=== PATIENT | male | born 1960 | race Caucasian/White ===

== ENCOUNTER 2024-02-23 18:07 | Inpatient (IN) | payer OTHER, SELFPAY ==
[2024-02-23] VITALS (27 sets, daily range): BP systolic 84–192; BP diastolic 52–105; BMI 27.4
[2024-02-23] MEDS: ATIVAN 2 MG IV ×2 (13:28→13:33)
[2024-02-23] MEDS: KEPPRA 1500 MG IV (13:34)
[2024-02-23 13:43] LABS: % Basophils 0.6 % (0-2); % Eosinophils 1.4 % (0-6); % Immature Granulocytes 0.6 % (0-0.5); % Lymphocytes 14.4 % (20.5-51.1); % Monocytes 6.7 % (1.7-9.3); % Neutrophils 76.3 % (42.2-75.2); Absolute Basophils 0.1 10^3/uL (0-0.2); Absolute Eosinophils 0.2 10^3/uL (0-0.7); Absolute Immature Granulocytes 0.1 10^3/uL (0-0.05); Absolute Lymphocytes 1.6 10^3/uL (1.2-3.4); Absolute Monocytes 0.8 10^3/uL (0.1-0.6); Absolute Neutrophils 8.7 10^3/uL (1.4-6.5); Hematocrit 40.5 % (39.0-52.0); Hemoglobin 13.9 g/dL (13.0-18.0); Mean Corp Hgb Conc. 34.3 g/dL (33.0-37.0); Mean Corpuscular Hgb 31.8 pg (27.0-31.0); Mean Corpuscular Volume 92.7 fL (80.0-94.0); Mean Platelet Volume 8.7 fL (7.4-10.4); Nucleated Red Blood Cells % 0 % (-); Platelet Count 351 10^3/uL (130-400); Red Blood Cell Count 4.37 10^6/uL (4.70-6.10); Red Cell Dist. Width 13.5 % (11.5-14.5); White Blood Cell Count 11.4 10^3/uL (4.8-10.8)
--- NOTE | 2024-02-23 13:45 | EDRN ---
[id number]- by Dr. Bernal
25mg etom @ 1346
50mg yoanna @ 1347
et tube 8.0
23 @ lip
[2024-02-23] MEDS: DIPRIVAN 100 IV ×2 (13:50→17:15)
[2024-02-23 13:51] LABS: ALT (SGPT) 24 U/L (0-50); AST (SGOT) 39 U/L (17-59); Albumin 4.5 g/dl (3.5-5.0); Alkaline Phosphatase 77 U/L (38-126); Blood Urea Nitrogen 10 mg/dl (9-20); Calcium 9.3 mg/dl (8.4-10.2); Carbon Dioxide 19 mmol/L (22-30); Chloride 106 mmol/L (98-107); Glucose 134 mg/dl (70-99); Sodium 138 mmol/L (135-145); Total Bilirubin 0.8 mg/dl (0.2-1.3); Total Protein 6.5 g/dl (6.3-8.2); eGFR > 60.00
--- NOTE | 2024-02-23 14:02 | ED.GENMED ---
History of Present Illness
General
Chief Complaint: Change in Mental Status
Source: patient
Time Seen by Provider: 02/23/24 13:28
History of Present Illness
History of Present Illness:
63-year-old female brought to the emergency room by paramedics in an agitated state. Patient evidently had a seizure at home. He was confused and has remained confused. Paramedics were called and had difficulty packaging the patient for
transport. They gave 5 mg of Versed IM. He was placed in restraints on the ambulance stretcher. On arrival here the patient is unable to provide any history. He repetitively yells out take his hands from his arms. Unclear if patient has been
taking his antiepileptics. Prehospital Accu-Chek was normal
Past History
Past History
ED Past Medical History: Seizures
ED Past Surgical History: None
Social History
Tobacco: Non-smoker
Alcohol: Former
Drug: Marijuana
Personal:
Living: with family
Employment: Other
Family History
Family History: Unable to obtain
Phy Exam
Physical Exam
Physical Exam:
General: Awake, agitated, confused
Vitals: Tachycardic
Head: Atraumatic
Eyes: Pupils equal, EOMI, no nystagmus observed
Throat: Airway intact, no exudates
Neck: Trachea midline
Lungs: Clear and equal b/l
Heart: Regular rate, no murmurs
Abd: Soft, Nontender, No pulsatile mass
Neuro: Moves all 4 extremities vigorously
Skin: Warm, dry, no rash
Extremities: pulses equal b/l, no edema
Course
Orders/Labs/Results
Orders:
Orders
02/23/24 13:19
Etomidate [Amidate] 40 mg .ROUTE .STK-MED ONE
Rocuronium Lakin [Rocuronium] 50 mg .ROUTE .STK-MED ONE
02/23/24 13:26
Lorazepam [Ativan] 2 mg .ROUTE .STK-MED ONE
02/23/24 13:28
Lorazepam [Ativan] 2 mg IV NOW STA
02/23/24 13:30
CBC/With Diff [Complete Blood Count/With Diff] Urgent
CMP [Comprehensive Metabolic Panel] Urgent
02/23/24 13:31
Lorazepam [Ativan] 2 mg .ROUTE .STK-MED ONE
02/23/24 13:32
Levetiracetam Injectable [Keppra] 1,500 mg .ROUTE .STK-MED ONE
Lorazepam [Ativan] 2 mg IV NOW STA
02/23/24 13:34
Levetiracetam Injectable [Keppra] 1,500 mg IV NOW STA
02/23/24 13:40
Propofol 1,000,000 Mcg/100 ml [Diprivan] 1,000,000 mcg in 100 ml .ROUTE .STK-MED
02/23/24 13:50
Portable Chest Xray [CR Chest Portable - 1 View] Stat
Comment:
Reason For Exam: intubation
Reason Study Needs to be Portable: Patient Unstable
02/23/24 13:54
CT Head W/o Iv Contrast Urgent
Comment:
Reason For Exam: altered mental status
02/23/24 14:35
FentaNYL 1,000 MCG/100 ML [Sublimaze] 1,000 mcg in 100 ml IV NOW
Indication:: Deep Sedation
Begin Infusion:: Now
Goal:: RASS </= -3, BIS 40-60, ventilator synchrony
Maximum dose in mcg/hr:: 300
Continue currently infusing dose and titrate:: Yes
Titration Instructions:: Titrate Q30 min until ventilator synchrony, RASS or BIS goal is met.
Titration Instructions:: If RASS >/= -2 or BIS > 60 or ventilator dyssynchrony:
Titration Instructions:: administer bolus dose and increase infusion by 25 mcg/hr.
Titration Instructions:: Administer analgesia bolus dose(s) & titrate analgesia prior to
Titration Instructions:: adjusting sedation.
Over-sedation Instructions:: if BIS < 40 and pt is synchronous with ventilator, decrease infusion by
Over-sedation Instructions:: 25 mcg/hr every 2 hours until BIS = 40-60.
Over-sedation Instructions:: Do not wean infusion to off if patient is receiving a continuous NMBA or
Over-sedation Instructions:: has received a bolus dose of NMBA within the past 3 hours.
Notify provider:: immediately if pt exhibits signs/symptoms of chest wall rigidity,
Notify provider:: hemodynamic instability, or agitation/pain despite maximum dosing.
Additional Instructions:: Patient MUST be mechanically ventilated.
Fentanyl Citrate/Pf [Sublimaze] 100 mcg IV NOW STA
Fentanyl Citrate/Pf [Sublimaze] 50 mcg IV [id number] PRN
02/23/24 14:37
FentaNYL 1,000 MCG/100 ML [Sublimaze] 1,000 mcg in 100 ml .ROUTE .STK-MED
02/23/24 14:47
Electrocardiogram (*1) Urgent
Reason for Study: Abnormal EKG
EKG- Treatment ONCE
02/23/24 14:49
Urinalysis Reflex To Culture Urgent
Date Specimen was Collected: 02/23/24
Time Specimen was Collected: 14:47
Urine Drug Abuse Screen Urgent
Date Specimen was Collected: 02/23/24
Time Specimen was Collected: 14:47
Urine Microscopic Reflex Cult Urgent
02/23/24 Dinner
NPO
Allow oral meds: Yes
Allow clear liquids: No
02/23/24 15:08
ABG [Arterial Blood Gas] Urgent
%Oxygen/Room Air: 60
02/23/24 15:24
Propofol 1,000,000 Mcg/100 ml [Diprivan] 1,000,000 mcg in 100 ml IV NOW
Indication:: Light Sedation
Begin Infusion:: Now
Goal:: RASS 0 to -2
Maximum dose in mcg/kg/min:: 50
Initial dose based on RASS:: Yes
If RASS is:: +1 or pt hemodynamically unstable (SBP < 90mmHg), initiate at 10 mcg/kg/min
If RASS is:: +2, initiate at 20 mcg/kg/min
If RASS is:: greater than or equal to +3, initiate at 30 mcg/kg/min
Titration Instructions:: Titrate by 5-10 mcg/kg/min every 5 minutes until RASS 0 to -2 achieved.
Taper Instructions:: If RASS is at or below goal for 4 consecutive hours decrease infusion by
Taper Instructions:: 5-10 mcg/kg/min every 2 hours to off.
Over-sedation Instructions:: If CPOT 0-2 (at goal) AND RASS -3 to -5 (below goal) decrease sedative by
Over-sedation Instructions:: 50% first. If pain score remains at goal and RASS remains below goal in
Over-sedation Instructions:: 1 hour, decrease opioid infusion by 50%.
Notify provider:: immediately if patient exhibits signs/symptoms of propofol-related
Notify provider:: infusion syndrome.
Additional Instructions:: Patient MUST be mechanically ventilated and MUST receive analgesia.
02/23/24 15:36
0.9% Sodium Chloride 500 ml [Nss] 500 ml IV BOLUS
02/23/24 15:44
Triglycerides Routine
Comment: baseline levels with propofol infusion
02/23/24 15:45
0.9% Sodium Chloride 1000 ml [Nss] 1,000 ml IV 200 mls/hr
02/23/24 16:43
Ventilator Initial Settings [RESP] Routine
Tidal Volume: 500
Rate: 14
FIO2: 40
PEEP: 5
02/23/24 17:15
Propofol 1,000,000 Mcg/100 ml [Diprivan] 1,000,000 mcg in 100 ml IV PER PROTOCOL
Indication:: Deep Sedation
Begin Infusion:: Now
Goal:: RASS -3 to -5 or BIS < 60 or ventilator synchrony
Maximum dose in mcg/kg/min:: 50
Continue currently infusion dose and titrate:: Yes
Titration Instructions:: Titrate by 5-10 mcg/kg/min every 5 minutes until RASS -3 to -5 or
Titration Instructions:: BIS < 60 or ventilator synchrony is met.
Titration Instructions:: Administer analgesia bolus dose(s) & titrate analgesia prior to
Titration Instructions:: adjusting sedation.
Taper Instructions:: If RASS is at or below goal for 4 consecutive hours decrease infusion by
Taper Instructions:: 5-10 mcg/kg/min every 2 hours. Do not wean infusion to off if patient is
Taper Instructions:: receiving a continuous NMBA or has received bolus NMBA with the past 3 hrs
Over-sedation Instructions:: If BIS < 40 and synchronous with ventilator decrease infusion by
Over-sedation Instructions:: 5-10 mcg/kg/min every 2 hour until BIS = 40-60.
Notify provider:: immediately if patient exhibits signs/symptoms of propofol-related
Notify provider:: infusion syndrome.
Additional Instructions:: Patient MUST be mechanically ventilated and MUST receive analgesia.
02/23/24 17:53
Admit/Transfer Patient As Directed
Co-Sign Provider:
Level of Care: Inpatient admission
Assign to:: ICU
Physician / Group: jerod
Diagnosis: seizure
Reason for Hospitalization: seizure
Expected length of stay greater than two midnights?: Yes
ELOS- Estimated Length of Stay in days: 2
I certify the patient meets the requirements for IP care: Yes
Code Status As Directed
Resuscitation Status: Full Code
PRN Pain Medication Management As Directed
May give lesser potent ordered pain med per pt: Yes
preference::
Protocol:: Medication orders for pain may be administered in a
manner that supports deferring to patient preference
when the pt is:
- Requesting an ordered lesser potent pain medication.
Least to most potent pain medications are defined
as: acetaminophen < NSAID < tramadol < opioids
(morphine, oxycodone, hydromorphone).
- Requesting a lesser dose of the same medication IF
ORDERED.
- Requesting a less intrusive route of administration
if both routes are prescribed by the provider (PO <
IV).
02/23/24 19:45
Activity As Directed
Activity Level: As Tolerated
Vital Signs As Directed
Frequency: Per unit guidelines
DX Deep Vein Thrombosis Video Routine
02/23/24 20:00
Heparin 5,000 units SC Q12
Levetiracetam Injectable [Keppra] 500 mg IV Q12
02/24/24 08:00
Pantoprazole [Protonix IV] 40 mg IV DAILY
Polyethylene Glycol Powder [Miralax] 17 grams TUBE DAILY
Abnormal Lab Results
02/23/24 02/23/24 02/23/24
13:30 14:49 15:08
WBC 11.4 H 10^3/uL
(4.8-10.8)
RBC 4.37 L 10^6/uL
(4.70-6.10)
MCH 31.8 H pg
(27.0-31.0)
Abs Immat Gran (auto) 0.1 H 10^3/uL
(0-0.05)
Absolute Neuts (auto) 8.7 H 10^3/uL
(1.4-6.5)
Absolute Monos (auto) 0.8 H 10^3/uL
(0.1-0.6)
Immature Gran % 0.6 H %
(0-0.5)
Neutrophils % 76.3 H %
(42.2-75.2)
Lymphocytes % 14.4 L %
(20.5-51.1)
pO2 181 H mmHg
(83-108)
ABG O2 Sat (Measured) 99.4 H %
(94-98)
Carbon Dioxide 19 L mmol/L
(22-30)
Glucose 134 H mg/dl
(70-99)
Urine Ketones Trace A
(Negative)
Ur Occult Blood Reflex 1+ A
(Negative)
Urine Bacteria (Reflex) Few A
(Negative)
U Marijuana (THC) Screen Positive H
(Negative)
02/23/24 13:30
02/23/24 13:30
Vital Signs
Initial and Last Documented VS:
Initial Vital Signs
Pulse Resp BP Pulse Ox
132 20 163/64 100
02/23/24 13:20 02/23/24 13:20 02/23/24 13:20 02/23/24 13:20
Last Documented Vital Signs
Temp Pulse Resp BP Pulse Ox
98.1 F 52 14 123/75 98
02/23/24 14:00 02/23/24 21:15 02/23/24 21:15 02/23/24 20:45 02/23/24 21:15
Procedures
Intubations
Procedure completed by: myself
Method of Intubation: glidescope
Tube size (cm): 8.0
Placement confirmed by: auscutation, CXR, capnography and direct visualization
Breath sounds after intubation: equal
Intubation complications: no complications
MDM/Problems Addressed
Differential Diagnosis Includes:
status epilepticus, seizure with prolonged post-ictal phase, ingestion
MDM/Problems Addressed:
Patient presents to the emergency room after having a seizure at home. Patient did not return to normal and remained confused and agitated. Patient received 2 doses of 5 mg each Versed in the ambulance. Patient received 2 doses of 2 mg lorazepam
here in the emergency room. These did not affect the patient's agitated behavior or tachycardia. Spent least 30 minutes at the bedside with the patient upon his helping to control his agitated behavior and titrating medication, observing for
improvement or deterioration in mental status and respiratory status. Ultimately, given concern for status epilepticus with nonconvulsive seizures or intracranial process we decided to proceed to intubation to facilitate antiepileptic medications
including. Prior to the patient patient also received 1500 mg of Keppra. Patient was intubated without difficulty. Heart rate was noted to improve after the initiation of propofol. Neurology consultation was obtained. Dr. Humphrey came and
evaluated the patient. He states that there is no ability to do an EEG at this time. Therefore patient will require transfer to an institution with that capability. Patient was accepted at [facility]. ABG postintubation shows good ventilation.
PaO2 was elevated and the FiO2 was titrated down to 40%. CT of the head showed no acute abnormality. Chest x-ray shows adequate positioning of the endotracheal tube. There was a prolonged period of time prior to patient transfer which required
repeat bedside evaluations and monitoring in the ventilator. Consultation was also obtained from the dean of students.
Chronic conditions affecting care: Other (Seizure disorder)
Acute Exacerbation and/or Progression of Chronic Illness: Other (Seizure disorder)
*Radiology
Radiology exam reviewed: preliminary read by ED provider (No acute lung issue, endotracheal tube in good position) and radiology read reviewed
*Pulse Oximetry
Patient hypoxic: no
*EKG
Heart Rate: 93
Rate: normal
Rhythm: sinus
[place]: normal axis
Interval: normal interval
QRS Pattern: normal QRS
Ischemia: no ischemia
*Leather Piece Inspector Interpretation
Rate: normal
Interpretation: normal
Rhythm: sinus
*Critical Care Note
Total Time (30-74mins, 75-104mins- exclusive of procedures): 75 min
comment:
Critical care statement: A total of 75 minutes of critical care time was provided for this patient. This includes management of unstable vital signs, evaluation of the patient at bedside, reviewing the patient's pertinent medical records, discussion
with consultants, review of old EKGs and review of pertinent medical records. This time with separate from time utilized to perform the aforementioned documented procedures
Patient Management
Social determinants of health affecting care: Poor outpatient follow-up
Discussion with other providers: Java Project Manager (Dr Humphrey)
ED Attending Note
-
Portions of this chart may have been created with voice recognition software.� Occasional wrong word or��sound alike� substitutions may have occurred due to the inherent limitations of voice recognition software.
Discharge Plan
Departure
Patient Disposition: Acute Care Hospital
Date of Disposition: 02/23/24
Time of Disposition: 14:55
Condition: Serious
Discharge Problem:
Status epilepticus, Respiratory failure
Hospital Transfer
Other hospital: [facility]
I certify that the patient requires transfer: Yes
Discussed case with accepting physician: Dr. Knapp
Reason for transfer: availability of service
Interventions
Interventions:
*Risk Screen - Suicide Last Done: 02/23/24 13:20
*General Assessment Last Done: 02/23/24 13:20
*Neglect/Abuse Screening Last Done: 02/23/24 13:20
*ED COVID-19 Vaccine History Last Done: 02/23/24 20:00
*Nursing Disposition Last Done: 02/23/24 19:56
ED- Neurological Assessment Last Done: 02/23/24 14:00
ED Swallowing Screen Last Done: 02/23/24 15:00
Discharge Date and Time
Discharge Date/Time: 02/23/24 19:57
[2024-02-23] MEDS: SUBLIMAZE 100 IV ×2 (14:40→20:18)
[2024-02-23] MEDS: SUBLIMAZE 100 MCG IV (14:43)
[2024-02-23 14:55] LABS: Urine Albumin Trace (Neg - Trace); Urine Bilirubin Negative (Negative); Urine Character Clear (Clear); Urine Color Yellow; Urine Glucose Negative (Negative); Urine Ketone Trace (Negative); Urine Leukocyte Negative (Negative); Urine Nitrite Negative (Negative); Urine Occult Blood 1+ (Negative); Urine Urobilinogen Negative (Neg - 1+)
[2024-02-23 15:09] LABS: Amphetamines Negative (Negative); Barbiturates Negative (Negative); Benzodiazepines Negative (Negative); Buprenorphine Negative (Negative); Cocaine Negative (Negative); Marijuana Positive (Negative); Methadone Negative (Negative); Methamphetamines Negative (Negative); Opiates Negative (Negative); Phencyclidine Negative (Negative); Tricyclic Antidepressants Negative (Negative)
[2024-02-23 15:13] LABS: Urine Bacteria Few (Negative); Urine Red Blood Cell 0-2 /HPF (0-2); Urine Squamous Cell 0-2 /LPF (Few); Urine White Cell 0-2 /HPF (0-5)
[2024-02-23 15:21] LABS: B.E. -1.8 mmol/L; HCO3 23.7 mmol/L (21-28); O2 Saturation % 99.4 % (94-98); PCO2 42 mmHg (35-48); PO2 181 mmHg (83-108); pH 7.36 (7.35-7.45)
--- NOTE | 2024-02-23 15:31 | CON.INTV ---
Consultation
Consultation Request
Date/Time Consultation Requested: 02/23/2024
Date/Time Consultation Performed: 02/23/2024 - 1530
Requesting Provider: Dr. Bernal
Performing Provider: Dr. Bautista
Reason for Consultation: Intubated/Seizures
Medical History
-
Chief Complaint: Seizure
History of Present Illness:
63-year-old male with a past medical history of epilepsy and essential tremor who presents after having witnessed seizure at home. 911 called and patient was confused for at least 50 minutes following his initial seizure. He was also combative and
inconsolable and had to be given 10 mg total Versed IM and restraints by EMS. Patient follows with neurology with last office visit on 09/28/[address] Neil. Patient is normally on extended release Keppra 750 mg once a day and was told to
contact [place] [facility] to facilitate a movement disorders evaluation for his history of essential tremor. He has a long history of AED noncompliance and repetitive seizures. His first seizure was in August 2020. He started taking Keppra after
he had a seizure in October 2022. Last seizure was in November 2022. In the ER, patient was tachycardic to 132, breathing at 20 breaths/min, BP 163/64 and saturating 100% on room air. Initial labs showed mild leukocytosis to 11.4, serum bicarbonate
level 19, glucose 134, urinalysis with trace urine ketones, UDS positive for marijuana. Due to continued altered mental status in the ER, he was intubated for airway protection. CXR showed no active pulmonary process and CT head showed no acute
intracranial abnormality. Neurology consulted -patient given NS 0.9% X5 100 cc, 2 mg Ativan, 1.5 g Keppra, and started on propofol + fentanyl drip. Unfortunately EEG interpretation capabilities are currently not available, and patient is being
arranged for transfer to [facility] for further care. Critical care services consulted for additional management/recommendations while patient is awaiting transfer.
When I saw the patient, he was intubated on AC at 500/14/40%/5, with PIP 21 cm water, breathing at 14 breaths/min and VTe 456 mL. SpO2 95%, BP 97/70 heart rate 79. He is on NS at 200 cc/hr, propofol gtt at 40mcg/kg/min and fentanyl gtt at
200mcg/hr. Patient's , Dominique, at bedside. I answered all of her questions. She says that the patient seized this afternoon and she is not sure if he has been compliant with his Keppra. This morning the patient just did not look right and
his color was off, so she made him take a Keppra pill but he still sees regardless. She says that before today he was in his usual state of health, although he was stung by several wasps the last 2 weekends. 2 weeks ago he was weed whacking and
revealed a wasps nest, and last weekend was moving some branches as they live out in the [place], and again was attacked by a bunch of wasps. He has been taking Benadryl over the last few weeks, she believes his last dose was this past Tuesday.
Otherwise she denies any recent travel for the patient, recent sick contacts, he has not been having any cough, chest pain, headache, fevers or chill.
PMHx: Epilepsy with history of status epilepticus due to medication noncompliance, essential tremor
PSHx: Excision of large soft tissue tumor at [place] (October 2013), tonsillectomy (2013)
Past Medical History
Past Medical History: Other (Above as per HPI)
Past Surgical History: Other (Above as per HPI)
Social History
Tobacco: Non-smoker
Alcohol: None
Drug: Marijuana
Personal:
Living: With Family
Family History
Family History: Cancer (Mother: Colon cancer) and Other (Brother: History of absence seizures)
Allergies / Home Medications
Allergies
Allergy/AdvReac Type Severity Reaction Status Date / Time
No Known Allergies Allergy Verified 02/23/24 13:31
Home Medications
�Medication �Instructions �Recorded �Confirmed �Last Taken �Type
levetiracetam 500 mg tablet 500 mg PO BID 30 days #60 tabs 04/15/21 09/22/21 Unknown Rx
levetiracetam 500 mg tablet 500 mg PO BID #60 tabs 09/22/21 Unknown Rx
levetiracetam 1,000 mg tablet 1,000 mg PO BID 2 months #120 tabs 10/23/22 Unknown Rx
(Keppra)
Review of Systems
-
Unable to Obtain full review of systems at this time due to: Patient Intubation
Vitals / Labs / Diagnostic Testing
Vital Signs
Pulse Resp BP Pulse Ox
99 17 178/74 96
02/23/24 14:45 02/23/24 14:45 02/23/24 14:45 02/23/24 14:45
Lab Data
02/23/24 13:30
02/23/24 13:30
Laboratory Results
02/23/24
15:08
pH 7.36
pCO2 42
pO2 181 H
HCO3 23.7
O2 Delivery Level
Diagnostic Testing:
Physical Exam
-
HEENT: Normocephalic, Anicteric and Other (ETT in place)
Cardiovascular: S1/S2 and Peripheral Edema (negative)
Respiratory: Wheeze (negative), Rales (negative), Rhonchi (negative), Non-Labored Respirations and Other (Mechanical breath sounds heard bilaterally)
GI: Soft, Non Distended, Non Tender and Normal Bowel Sounds
Neurology: Tremors (negative) and Other (Pupils 2 mm and sluggish bilaterally; +gag reflex)
Skin: Warm and Dry
General: Respiratory Distress (negative), Chills (negative) and Sweats (negative)
Assessment
-
Assessment: 63-year-old male with a past medical history of epilepsy and essential tremor who presents after having witnessed seizure at home. 911 called and patient was confused for at least 50 minutes following his initial seizure. He was also
combative and inconsolable and had to be given 10 mg total Versed IM and restraints by EMS. Patient follows with neurology with last office visit on 09/28/[address] Neil. Patient is normally on extended release Keppra 750 mg once a day and
was told to contact [place] [facility] to facilitate a movement disorders evaluation for his history of essential tremor. He has a long history of AED noncompliance and repetitive seizures. His first seizure was in August 2020. He started taking
Keppra after he had a seizure in October 2022. Last seizure was in November 2022. In the ER, patient was tachycardic to 132, breathing at 20 breaths/min, BP 163/64 and saturating 100% on room air. Initial labs showed mild leukocytosis to 11.4, serum
bicarbonate level 19, glucose 134, urinalysis with trace urine ketones, UDS positive for marijuana. Due to continued altered mental status in the ER, he was intubated for airway protection. CXR showed no active pulmonary process and CT head showed
no acute intracranial abnormality. Neurology consulted - patient given NS 0.9% x 500 cc bolus, 2 mg Ativan, 1.5g Keppra, and started on propofol + fentanyl drip. Unfortunately EEG interpretation capabilities are currently not available, and
patient is being arranged for transfer to [facility] for further care. Critical care services consulted for additional management/recommendations while patient is awaiting transfer.
Chronic conditions LOAD TEST MECHANIC: Epilepsy with history of status epilepticus due to medication noncompliance, essential tremor
Impression:
#Breakthrough seizure in a patient with epilepsy c/b status epilepticus
#Acute respiratory failure with hypoxia now on mechanical ventilation
#Leukocytosis
#Metabolic acidosis with normal anion gap
Plan:
- Continue with mechanical ventilation with daily SAT/SBT if clinically appropriate
- Continue with AEDs as per neurology
- Maintain RASS 0 to -2 with propofol gtt and can likely stop fentanyl gtt and use prn fentanyl pushes
- Awaiting TRX to [facility] for continuous bedside EEG and continued management
- Keep HOB >30-45 degrees to minimize risk of aspiration
- Maintain SpO2 >90-94%
- Maintain MAP>65
- Trend WBC, hold off on ABx as this is likely reactive; plus CXR appears clear without pneumonia, and he is afebrile
- Replete electrolytes with K>4, Mg>2
- Maintain euglycemia with goal BG 140-180
- prn nebulized bronchodilators - not currently bronchospastic
- Start PPI for stress ulcer ppx given critical neurocognitive status
- DVT ppx
[facility] will continue to follow along while patient remains hospitalized here while awaiting transfer to [facility].
Critical care statement: A total of 40 minutes of critical care time was provided for this patient today. This includes management of unstable vital signs, evaluation of the patient at bedside, reviewing the patient's pertinent medical records
including radiographs, microbiology, laboratory evaluations, and discussion with primary team, consultants, pharmacy, nutrition, physical therapy, case management, charge nurse, critical care nursing, and respiratory therapy.
Data:
CXR 02/23/2024: No active pulmonary process
CT head 02/23/2024: No focal or acute intracranial abnormalities. Mild diffuse cortical and cerebellar atrophy.
[2024-02-23] MEDS: NSS IV (15:42)
[2024-02-23] MEDS: NSS 500 IV (15:42)
[2024-02-23] MEDS: NSS 1000 IV ×2 (15:48→20:26)
[2024-02-23 16:14] LABS: Triglycerides 87 mg/dl (10-149)
--- NOTE | 2024-02-23 17:56 | HPS.HSE ---
Addendum entered and electronically signed by Cecily Marinelli MD 02/23/24 18:07:
Continued Keppra 500 BID.
Original Note:
Family Physician
-
Family Physician: NO INTERVIEW UNKNOWN
Chief Complaint
-
seizure
History of Present Illness
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 911 was called and patient
was confused for at least 15 minutes after initial seizure. He was combative and given 10 mg IM Versed and restraints by EMS. Patient follows with neurology last office visit was on 09/[address] Neil. Patient is normally on extended release
Keppra 750 mg once a day and told to contact neurology to arrange for movement disorders evaluation for essential tremor.
His first seizure was in 2020 and started Keppra after seizure in 2022. His last seizure was in November 2022.
Patient was tachycardic and due to continued altered mental status he was intubated for airway protection. Neurology was consulted and patient was given IV fluids, 2 mg Ativan, 1.5 g of Keppra start on propofol and fentanyl drip. Due to
unavailability of EEG interpretation patient is being transferred to [facility].
Patient's states that she is not sure if patient has been compliant with his Keppra. This morning he did not look right and his color was off and he was having visual hallucinations which is not a usual aura symptom when he had seizure. She
made him take Keppra however he still had a seizure. He noticed that one of his arms were shaking and he had irregular breathing, foaming at the mouth without tongue biting. Seizure lasted around 15 minutes which is typical for his usual seizure
length.
His last seizure was 6 months ago.
He had been swarmed by wasps over the past few weekends has been taking a lot of Benadryl.
He denies any recent travel, sick contacts. No chest pain, cough, headache, fevers or chills vomiting or diarrhea.
Patient does not drink alcohol or smoke. He uses marijuana.
Medical History
Past Medical History
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
Past Surgical History: Reports Other (sarcoma resection thigh )
Social History
Tobacco: Non-smoker
Drug: Marijuana
Family History
Family History: Other (brother with seizure )
Allergies / Home Medications
Allergies reflects when Allergies were last updated in [facility].
Home Medications with original date entered in [facility]
Allergy/Medication List:
Allergies
Allergy/AdvReac Type Severity Reaction Status Date / Time
No Known Allergies Allergy Verified 02/23/24 13:31
Home Medications
levetiracetam 750 mg tablet,extended release 24 hr 750 mg PO DAILY 02/23/24
Review of Systems
-
History Source: Family
A 12 point ROS was completed and negative except as noted: Yes
Constitutional: Reports No Symptoms
EENT: Reports No Symptoms
Respiratory: Reports No Symptoms
Cardiac: Reports No Symptoms
Abdomen/GI: Reports No Symptoms
: Reports No Symptoms
Musculoskeletal: Reports No Symptoms
Skin: Reports No Symptoms
Neurological: Reports See HPI
Endocrine: Reports No Symptoms
Hematologic/Lymphatic: Reports No Symptoms
Psych: Reports No Symptoms
Physical Exam
Vital Signs
Vital Signs
Temp Pulse Resp BP Pulse Ox
98.1 F 64 14 91/60 96
02/23/24 14:00 02/23/24 17:45 02/23/24 17:45 02/23/24 17:45 02/23/24 17:45
Physical Exam
General: Well Developed, Well Nourished and No Apparent Distress
HEENT: NormoCephalic, Moist mucous membranes and Atraumatic
Respiratory: Clear
Cardiac: S1/S2 and Regular Rhythm; No Murmur or Rub
GI: Soft, Non Tender, Non Distended and Normal Bowel Sounds; No Organomegaly
Rectal: Deferred by Provider
Musculoskeletal: No Clubbing, No Cyanosis and No Edema
Skin: No Rash
Neuro: Nonfocal/grossly intact
Laboratory Results
-
02/23/24 13:30
02/23/24 13:30
Laboratory Results
pH 7.36 (7.35-7.45) 02/23/24 15:08
pCO2 42 mmHg (35-48) 02/23/24 15:08
pO2 181 mmHg (83-108) H 02/23/24 15:08
HCO3 23.7 mmol/L (21-28) 02/23/24 15:08
Total Bilirubin 0.8 mg/dl (0.2-1.3) 02/23/24 13:30
AST 39 U/L (17-59) 02/23/24 13:30
ALT 24 U/L (0-50) 02/23/24 13:30
Alkaline Phosphatase 77 U/L (38-126) 02/23/24 13:30
Data Reviewed
-
Lab Data: Labs Reviewed by me
Old Records: Reviewed
Impression/Plan
-
IMPRESSION:
PLAN:
# Seizure secondary to Keppra noncompliance/decrease of seizure threshold secondary to Benadryl
# History of epilepsy/status epilepticus
-CT head shows no acute abnormality, chest x-ray unremarkable
-Patient intubated for airway protection
-Status post 2 mg Ativan
-Status post 1.5 g Keppra
-Currently on propofol drip, fentanyl drip
-Tobacco Sampler, neurology consulted
-Patient has bed at [place] to be transferred because EEG interpretation unavailable currently
History of essential tremor
History of sarcoma left thigh status post surgical resection
Marijuana user
Full code
DVT prophylaxis�heparin
N.p.o.
--- NOTE | 2024-02-23 20:00 | PTCARENOTE ---
pt admit to ICU from ER, awaiting bed/transport to [place] for cEEG. pupils 2S, afeb, SB HR 50s. B/L IV patent- fent, prop, IVF infusing per work list. intubated, ETT#8/, AC 14/500/40/5, Sat 99%, crs t/o. +BS, abd soft, incontinent yellow urine
in brief- bladder scan = 401cc, straight cath for 400cc, #30 condom cath placed. to bedside/updated on plan.
[2024-02-23] MEDS: HEPARIN 5000 UNITS SC (20:20)
[2024-02-23] MEDS: KEPPRA 500 MG IV (20:21)
--- NOTE | 2024-02-23 21:13 | PTCARENOTE ---
report called to [facility]. vss, awaiting transport.
--- NOTE | 2024-02-23 21:43 | PTCARENOTE ---
Neo STAT to bedside, pt transported to [place] at this time.
== END 2024-02-23 21:45 | disposition short-term general hospital (02) | DRG 100 ==
LOC: ICU 18:07
PROVIDERS: ADMITTING PHYSICIAN Hospitalist; CONSULT PHYSICIAN Internal Medicine Critical Care Medicine; EMERGENCY PHYSICIAN Emergency Medicine
PROC: 5A1935Z Respiratory Ventilation, Less than 24 Consecutive Hours (ICD-10-PCS; 2024-02-23)
PROC: 0CHY7BZ Insertion of Airway into Mouth and Throat, Via Natural or Artificial Opening (ICD-10-PCS; 2024-02-23)
DX: G40.901 Epilepsy, unspecified, not intractable, with status epilepticus (principal); J96.01 Acute respiratory failure with hypoxia; E87.20 Acidosis, unspecified; Z91.199 Patient's noncompliance with other medical treatment and regimen due to unspecified reason; Z78.1 Physical restraint status
CPT/HCPCS: 43752; 70450; 71045; 80053; 80306; 81003; 81015; 82805; 84478; 85025; 93005; 94002; 96365; 96366; 96367; 96375; 99285

== ENCOUNTER 2025-01-04 07:27 | Emergency (ER) | payer OTHER, SELFPAY ==
[2025-01-04 07:59] VITALS: BMI 26.8
[2025-01-04 08:00] VITALS: BP 187/116
[2025-01-04 08:04] VITALS: BP 187/116
[2025-01-04 08:30] LABS: Hematocrit 42.4 % (39.0-52.0); Hemoglobin 14.8 g/dL (13.0-18.0); Mean Corp Hgb Conc. 34.9 g/dL (33.0-37.0); Mean Corpuscular Volume 89.5 fL (80.0-94.0); Nucleated Red Blood Cells % 0 % (-); Platelet Count 331 10^3/uL (130-400); Red Cell Dist. Width 14.3 % (11.5-14.5)
--- NOTE | 2025-01-04 08:31 | ED.MUSCINJ ---
HPI-Injury
<KING Tran Last Filed: 01/04/25 10:13>
General
Chief Complaint: Musculo-Skeletal Complaint
Source: patient
Exam Limitations: none
Time Seen by Provider: 01/04/25 07:52
History of Present Illness-Injury
Initial Injury comments:
64-year-old male presents with right shoulder pain and possible dislocation. He states he was on an alcoholic binge and was intoxicated last evening and fell and may have dislocated his shoulder. His hand has been kept above his head since then.
He also notes bruising around the shoulder. No chest pain he does not recall hitting his head but there is bruising to the right forehead. His significant other is with him. Significant other states he has an essential tremor at baseline and he
is an anxious person at baseline. Patient does appear quite anxious on my exam.
Past History
<Brian Shea PA-C - Last Filed: 01/04/25 10:13>
Past History
ED Past Medical History: Seizures
ED Past Surgical History: None
Social History
Tobacco: Non-smoker
Alcohol: Former
Drug: Marijuana
Personal:
Living: with family
Employment: Other
Family History
Family History: Unable to obtain
Phy Exam
<KING Tran Last Filed: 01/04/25 10:13>
Physical Exam
Physical Exam:
General: Well-appearing male tremulous no acute respiratory distress
HEENT normocephalic contusion noted to the right forehead pupils equal round reactive to light
Heart: Tachycardic but regular
Lungs: Clear no wheeze
Musculoskeletal exam: Deformity noted to the right shoulder with ecchymosis surrounding the right shoulder. The chest wall is nontender the legs are without deformity and are nontender
Neurologic exam: Diffuse tremor alert good muscle tone no unilateral weakness
Injury Course
<Brian Shea PA-C - Last Filed: 01/04/25 10:13>
Orders/Labs/Results
Orders:
Orders
01/04/25 07:27
Shoulder, Right, Trauma [CR Shoulder, Trauma - Right] Urgent
Comment:
Reason For Exam: fall/pain/possible dislocation
01/04/25 08:18
CT Head W/o Iv Contrast Urgent
Comment:
Reason For Exam: fall
01/04/25 08:19
Sling Right-Treatment ONCE
01/04/25 08:20
Ammonia Urgent
Complete Blood Count/With Diff Urgent
Comprehensive Metabolic Panel Urgent
01/04/25 08:25
PTT Urgent
Prothrombin Time Urgent
01/04/25 08:26
CR Shoulder, Trauma - Right Urgent
Reason For Exam: postreduction
01/04/25 08:30
Electrocardiogram (*1) Urgent
Reason for Study: Chest Pain
EKG- Treatment ONCE
0.9% Sodium Chloride 1000 ml [Nss] 1,000 ml IV BOLUS
Lorazepam [Ativan] 1 mg IV NOW STA
01/04/25 08:52
Levetiracetam Injectable [Keppra] 1,000 mg IV NOW STA
Abnormal Lab Results
01/04/25
08:20
WBC 21.0 H 10^3/uL
(4.8-10.8)
MCH 31.2 H pg
(27.0-31.0)
Abs Immat Gran (auto) 0.1 H 10^3/uL
(0-0.05)
Absolute Neuts (auto) 18.3 H 10^3/uL
(1.4-6.5)
Absolute Lymphs (auto) 0.6 L 10^3/uL
(1.2-3.4)
Absolute Monos (auto) 2.0 H 10^3/uL
(0.1-0.6)
Neutrophils % 86.9 H %
(42.2-75.2)
Lymphocytes % 2.8 L %
(20.5-51.1)
Monocytes % 9.5 H %
(1.7-9.3)
Carbon Dioxide 13 L* mmol/L
(22-30)
Glucose 183 H mg/dl
(70-99)
Total Bilirubin 2.0 H mg/dl
(0.2-1.3)
AST 178 H U/L
(17-59)
ALT 76 H U/L
(0-50)
Ammonia < 9 L umol/L
(9-30)
01/04/25 08:20
01/04/25 08:20
<Juan Harrison, DO - Last Filed: 01/04/25 08:53>
Orders/Labs/Results
Orders:
Orders
01/04/25 07:27
Shoulder, Right, Trauma [CR Shoulder, Trauma - Right] Urgent
Comment:
Reason For Exam: fall/pain/possible dislocation
01/04/25 08:18
CT Head W/o Iv Contrast Urgent
Comment:
Reason For Exam: fall
01/04/25 08:19
Sling Right-Treatment ONCE
01/04/25 08:20
Ammonia Urgent
Complete Blood Count/With Diff Urgent
Comprehensive Metabolic Panel Urgent
01/04/25 08:25
PTT Urgent
Prothrombin Time Urgent
01/04/25 08:26
CR Shoulder, Trauma - Right Urgent
Reason For Exam: postreduction
01/04/25 08:30
Electrocardiogram (*1) Urgent
Reason for Study: Chest Pain
EKG- Treatment ONCE
0.9% Sodium Chloride 1000 ml [Nss] 1,000 ml IV BOLUS
Lorazepam [Ativan] 1 mg IV NOW STA
01/04/25 08:52
Levetiracetam Injectable [Keppra] 1,000 mg IV NOW STA
Abnormal Lab Results
01/04/25
08:20
WBC 21.0 H 10^3/uL
(4.8-10.8)
MCH 31.2 H pg
(27.0-31.0)
Abs Immat Gran (auto) 0.1 H 10^3/uL
(0-0.05)
Absolute Neuts (auto) 18.3 H 10^3/uL
(1.4-6.5)
Absolute Lymphs (auto) 0.6 L 10^3/uL
(1.2-3.4)
Absolute Monos (auto) 2.0 H 10^3/uL
(0.1-0.6)
Neutrophils % 86.9 H %
(42.2-75.2)
Lymphocytes % 2.8 L %
(20.5-51.1)
Monocytes % 9.5 H %
(1.7-9.3)
Carbon Dioxide 13 L* mmol/L
(22-30)
Glucose 183 H mg/dl
(70-99)
Total Bilirubin 2.0 H mg/dl
(0.2-1.3)
AST 178 H U/L
(17-59)
ALT 76 H U/L
(0-50)
Ammonia < 9 L umol/L
(9-30)
01/04/25 08:20
01/04/25 08:20
Khushboolt;Brian Shea PA-C - Last Filed: 01/04/25 10:13>
MDM/Problems Addressed
Differential Diagnosis Includes:
Right shoulder deformity after fall. Consider fracture versus dislocation
Initial x-rays demonstrated anterior shoulder dislocation. This was reduced in the room with gentle longitudinal traction and external rotation. A palpable clunk was felt postreduction films demonstrated successful reduction. Patient was
intoxicated hit his head. Concern for underlying head injury CT head pending. Patient is an alcoholic recently on a binge last alcoholic beverage was 12 hours ago. Do not suspect withdrawal given the timing. He does have a history of alcohol
withdrawal seizures in the past.
<Brian Shea PA-C - Last Filed: 01/04/25 10:13>
*Pulse Oximetry
SaO2: 99
Oxygen Mode of Delivery: Room air
Patient hypoxic: no
*Critical Care Note
Total Time (30-74mins, 75-104mins- exclusive of procedures): Not Applicable
<Brian Shea PA-C - Last Filed: 01/04/25 10:13>
Update Note
Update Note:
Postreduction films demonstrate successful reduction. CT of the head was ordered and was negative for acute traumatic injury. Patient slightly acidotic here. Could be related to alcohol or recent potential seizure. He was hydrated. He is now
more alert upon reassessment he is feeling better. He was given a dose of Keppra here as well as Ativan. No indication for admission. Stable for discharge
ED Attending Note
<Brian Shea PA-C - Last Filed: 01/04/25 10:13>
-
Portions of this chart may have been created with voice recognition software.� Occasional wrong word or��sound alike� substitutions may have occurred due to the inherent limitations of voice recognition software.
<Juan Harrison DO - Last Filed: 01/04/25 08:53>
ED Attending Note
Patient seen and examined by attending physician: Yes
I performed the substantive portion of visit, reviewed & personally made and approve the management plan that is documented in note by myself or JUAN.: Yes
ED Attending Note:
Seen with PA examined independently tremulous male history of epilepsy takes Keppra 750 a day admits to missing some doses also drinks alcohol, presented with a shoulder dislocation, feeling better after relocation, labs are noted will give him an
IV dose of Keppra workup for medical issues, disposition pending
Discharge Plan
Departure
Patient Disposition: Home (Routine Discharge)
Date of Disposition: 01/04/25
Time of Disposition: 10:11
Patient with high blood pressure during this ER visit?: No
Discharge Problem:
Dislocated shoulder
Instructions: How to Use a Shoulder Sling
Prescriptions:
No Action
levetiracetam 750 mg tablet extended release 24 hr
750 mg PO DAILY
Referrals:
Gage Cleaning MD [Active, Orthopedics]
Activity Restrictions/Additional Instructions:
You may use ibuprofen for pain. Use the sling for support. Continue your current medication. Return if worse otherwise follow-up with orthopedics.
Interventions
Interventions:
*Risk Screen - Suicide Last Done: 01/04/25 07:29
*General Assessment Last Done: 01/04/25 08:00
*Neglect/Abuse Screening Last Done: 01/04/25 07:29
*ED COVID-19 Vaccine History Last Done: 01/04/25 08:16
ED-Musculoskeletal Assessment Last Done: 01/04/25 09:58
Discharge Date and Time
Print Language: GUYANESE
[2025-01-04 08:45] LABS: Ammonia < 9 umol/L (9-30)
[2025-01-04 08:46] LABS: AST (SGOT) 178 U/L (17-59); Albumin 5.0 g/dl (3.5-5.0); Alkaline Phosphatase 80 U/L (38-126); Blood Urea Nitrogen 15 mg/dl (9-20); Calcium 9.4 mg/dl (8.4-10.2); Carbon Dioxide 13 mmol/L (22-30); Chloride 102 mmol/L (98-107); Estimated Creatinine Clearance 98 ml/min; Glucose 183 mg/dl (70-99); Potassium 3.6 mmol/L (3.5-5.1); Sodium 135 mmol/L (135-145); Total Protein 7.0 g/dl (6.3-8.2); eGFR > 60.00
[2025-01-04] MEDS: ATIVAN 1 MG IV (08:47)
[2025-01-04] MEDS: NSS 1000 IV (08:50)
[2025-01-04 08:54] LABS: ALT (SGPT) 76 U/L (0-50)
[2025-01-04] MEDS: KEPPRA 1000 MG IV (08:55)
== END 2025-01-04 10:20 | disposition home or self-care (01) ==
LOC: EMR 07:27
PROVIDERS: Physician Assistant; EMERGENCY PHYSICIAN Emergency Medicine; FAMILY PHYSICIAN Family Medicine
DX: S43.084A Other dislocation of right shoulder joint, initial encounter (principal); S00.83XA Contusion of other part of head, initial encounter; S40.011A Contusion of right shoulder, initial encounter; W19.XXXA Unspecified fall, initial encounter
CPT/HCPCS: 23650; 96374; 96375; 96361; 99284; 70450; 73030; 80053; 82140; 85025; 93005

== ENCOUNTER → 2025-01-20 07:28 | Outpatient (REF) | payer OTHER, SELFPAY | LOC: PAVMRI 07:28 | PROVIDERS: ATTENDING PHYSICIAN Orthopaedic Surgery; FAMILY PHYSICIAN Family Medicine | DX: S43.004A Unspecified dislocation of right shoulder joint, initial encounter (principal) | CPT/HCPCS: 73221 ==